=== PATIENT | female | born 1950 | race African-American/Black ===

== ENCOUNTER 2019-12-19 10:20 | Outpatient (CLI) | payer MEDICARE, SELFPAY ==
--- NOTE | ~2019-12-19 | MM_ITS ---
EXAMINATION: MM screening jennifer BI w leslie HISTORY: Screening mammogram, family history of breast cancer in her mother. TECHNIQUE: Craniocaudal and mediolateral oblique 3-D tomosynthesis images were obtained and synthetic 2-D images were generated. CAD analysis was submitted and interpreted. COMPARISON: 12/12/2018, 12/10/2017, 11/27/2016, 11/16/2014 BREAST PARENCHYMAL COMPOSITION: The breasts are almost entirely fatty. FINDINGS: Scattered benign-appearing calcifications are present. There is no evidence of suspicious m ass, calcification, or architectural distortion to suggest malignancy in either breast. There has bee n no suspicious interval change. IMPRESSION: 1. No mammographic evidence of malignancy. 2. Recommend routine screening mammography in one year. BI-RADS Category 2: Benign finding(s). Reviewed, dictated and finalized at location A.
== END 2019-12-19 10:21 | disposition home or self-care (01) ==
PROVIDERS: PCP Family Medicine; Visit Provider Family Medicine
DX: Z12.31 Encounter for screening mammogram for malignant neoplasm of breast (principal)
CPT/HCPCS: 77063; 77067

== ENCOUNTER → 2019-12-24 13:37 | Outpatient (CLI) | payer MEDICARE, SELFPAY ==
--- NOTE | ~2019-12-24 | US_ITS ---
EXAMINATION: US soft tissue LE RT DATE: 12/24/2019 14:00 INDICATION: Painless localized swelling, unspecified lump or mass at the posterolateral right thigh TECHNIQUE: Multiple grayscale and Doppler ultrasound images of the region of concern at the posterola teral right thigh were obtained. COMPARISON: None FINDINGS/IMPRESSION: Normal appearance to the subcutaneous fat and underlying musculature at the region of concern. No abn ormal masses or fluid collections identified. Reviewed, dictated and finalized at location A.
== END ==
PROVIDERS: PCP Family Medicine; Visit Provider Family Medicine
DX: R22.9 Localized swelling, mass and lump, unspecified (principal); M79.89 Other specified soft tissue disorders
CPT/HCPCS: 76882

== ENCOUNTER 2020-05-03 07:42 | Outpatient (CLI) | payer MEDICARE, SELFPAY ==
--- NOTE | ~2020-05-03 | DEXA_ITS ---
Bone Density Report Name: Dinora Washington Age: 70 Sex: Female Ethnicity: Black Date of : 1950 Indication: hyperparathyroidism; height loss; hysterectomy; Referring Provider: NateBishop Study: Bone densitometry was performed. Exam Date: May 03, 2020 Accession number: [id number] Bone Density: Region BMD T-score Z-score Classification AP Spine (L1, L2) 0.953 -0.2 1.2 Normal Femoral Neck (Left) 0.653 -1.8 -0.6 Osteopenia Total Hip (Left) 0.987 0.4 0.9 Normal Total Hip Bilateral Avg 1.004 0.6 1.0 Normal Femoral Neck (Right) 0.723 -1.1 -0.1 Osteopenia Total Hip (Right) 1.021 0.7 1.1 Normal World Health Organization criteria for BMD impression classify patients as: Normal (T-score at or above -1.0), Osteopenia (T-score between -1.0 and -2.5), or Osteoporosis (T-score at or below -2.5). 10-year Fracture Risk(1): Major Osteoporotic Fracture 4.5% Hip Fracture 0.8% Reported Risk Factors: [place] (Black), Neck BMD=0.653, BMI=39.1 (1) FRAX(R) Version 3.08. Fracture probability calculated for an untreated patient. Fracture probability may be lower if the patient has received treatment. Previous Exams: Region Exam Age BMD T-score BMD Change BMD Change Date g/cm2 vs Baseline vs Previous AP Spine(L1, L2) 05/03/2020 70 0.953 -0.2 -0.076(-7.4%)# 0.016(1.7%) 03/03/2018 68 0.938 -0.4 -0.092(-8.9%)# -0.046(-4.7%)* 09/16/2015 65 0.984 0.0 -0.045(-4.4%)# -0.003(-0.3%)# 04/28/2012 62 0.987 0.1 -0.042(-4.1%)# -0.042(-4.1%)# 04/06/2006 56 1.029 0.5 Total Hip(Left) 05/03/2020 70 0.987 0.4 -0.124(-11.2%) 0.016(1.6%) 03/03/2018 68 0.971 0.2 -0.140(-12.6%) -0.014(-1.4%) 09/16/2015 65 0.985 0.4 -0.126(-11.3%) -0.071(-6.7%)# 04/28/2012 62 1.056 0.9 -0.055(-5.0%)# -0.055(-5.0%)# 04/06/2006 56 1.111 1.4 Total Hip(Right) 05/03/2020 70 1.021 0.7 -0.160(-13.5%) 0.027(2.7%)* 03/03/2018 68 0.994 0.4 -0.187(-15.8%) -0.084(-7.8%)* 09/16/2015 65 1.078 1.1 -0.103(-8.7%)# -0.046(-4.1%)# 04/28/2012 62 1.125 1.5 -0.056(-4.8%)# -0.056(-4.8%)# 04/06/2006 56 1.181 2.0 *Denotes significance at 95% confidence level, LSC for AP Spine = 0.022 g/cm2, LSC for Total Hip = 0.027 g/cm2 Clinical Information Provided by Patient: Has used the following medications: Vitamin D Has the following medical conditions: Hyperparathyroidism, Hysterectomy Patient maximum height was 63 Menopause Age: 46 No regular weight bearing exercise
== END 2020-05-03 07:43 | disposition home or self-care (01) ==
LOC: ANHIMG 07:44
PROVIDERS: PCP Family Medicine; Visit Provider Internal Medicine Endocrinology, Diabetes & Metabolism
DX: E21.3 Hyperparathyroidism, unspecified (principal); M85.852 Other specified disorders of bone density and structure, left thigh; M85.851 Other specified disorders of bone density and structure, right thigh
CPT/HCPCS: 77080

== ENCOUNTER 2020-12-15 10:11 | Outpatient (CLI) | payer MEDICARE, SELFPAY | END 2020-12-15 10:12 | disposition home or self-care (01) | LOC: ANHCOVIDVC 10:11 | PROVIDERS: PCP Family Medicine; Visit Provider Family Medicine | DX: Z23 Encounter for immunization (principal) | CPT/HCPCS: 0001A; 91300 ==

== ENCOUNTER 2021-01-05 10:11 | Outpatient (CLI) | payer MEDICARE, SELFPAY | END 2021-01-05 10:12 | disposition home or self-care (01) | LOC: ANHCOVIDVC 10:11 | PROVIDERS: PCP Family Medicine; Visit Provider Family Medicine | DX: Z23 Encounter for immunization (principal) | CPT/HCPCS: 0002A; 91300 ==

== ENCOUNTER 2021-03-10 07:48 | Outpatient (CLI) | payer MEDICARE, SELFPAY ==
--- NOTE | ~2021-03-10 | MM_ITS ---
EXAMINATION: MM screening jennifer BI w leslie HISTORY: Screening TECHNIQUE: Craniocaudal and mediolateral oblique 3-D tomosynthesis images were obtained and synthetic 2-D images were generated. CAD analysis was submitted and interpreted. COMPARISON: Comparison to multiple prior studies sequentially, with oldest reviewed study dated 04/2015. BREAST PARENCHYMAL COMPOSITION: The breasts are almost entirely fatty. FINDINGS: There is no evidence of suspicious mass, calcification, or architectural distortion to sugg est malignancy in either breast. There has been no suspicious interval change. IMPRESSION: 1. No mammographic evidence of malignancy. 2. Recommend routine screening mammography in one year. BI-RADS Category 1: Negative Reviewed, dictated and finalized at location A.
== END 2021-03-10 07:49 | disposition home or self-care (01) ==
LOC: ANHIMG 07:54
PROVIDERS: PCP Family Medicine; Visit Provider Family Medicine
DX: Z12.31 Encounter for screening mammogram for malignant neoplasm of breast (principal)
CPT/HCPCS: 77063; 77067

== ENCOUNTER 2021-09-16 22:21 | Emergency (ER) | payer MEDICARE, SELFPAY ==
--- NOTE | ~2021-09-16 | CT_ITS ---
EXAMINATION: CT abdomen pelvis w con DATE: 09/17/2021 02:08 INDICATION: Abdominal pain. TECHNIQUE: Computed tomography (CT) of the abdomen and pelvis was performed with 100 mL Omnipaque 350 intravenous contrast. Automated exposure control and iterative reconstruction technique were employe d. The dose-length product was 1234.24 mGy-cm. COMPARISON: CT abdomen and pelvis 07/27/2013 FINDINGS: The visualized portions of the lung bases demonstrate mild atelectasis. There is bronchiect asis in the lower lobes. The heart size is normal. No pericardial effusion. There is a large sliding hiatal hernia containing the majority of the stomach and some of the pancreas. The liver, gallbladder , spleen, and adrenal glands are normal. There are cysts in left kidney measuring up to 2.9 cm. Pelvi c floor relaxation is noted. There is a diverticulum of the third portion of the duodenum. There is d iverticulosis of the colon without evidence of diverticulitis. The appendix is not visualized. There are no pathologically enlarged lymph nodes. There is no free intraperitoneal fluid. There is moderate thoracic and lumbar spondylosis. IMPRESSION: 1. Large sliding hiatal hernia. 2. Pelvic floor relaxation. Reviewed, dictated and finalized at location A. NG PRESS MAINTAINER
[2021-09-16 22:23] VITALS: BP 180/94; PULSE 100; RESP 20; TEMP 35.9; O2SAT 100
--- NOTE | 2021-09-17 00:13 | ED.ABDPAIN ---
HPI - Abdominal Pain General Chief Complaint: Abdominal Pain <DO Allegra Rodriguez Last Filed: 09/17/21 01:28> Stated Complaint: abdominal pain <DO Allegra Rodriguez Last Filed: 09/17/21 01:28> Time Seen by Provider: 09/16/21 23:43 <DO Allegra Rodriguez Last Filed: 09/17/21 01:28> Source: RN notes reviewed <DO Allegra Rodriguez Last Filed: 09/17/21 01:28> History of Present Illness HPI narrative: Patient presents to emergency department from home for abdominal pain. Patient states pain began approximately 8:00 this evening. The pain is located across the upper abdomen described as cramping in nature. Patient states that for like she had had gas and did have some nausea but never had any vomiting she states she did take Gas-X which seems of help with her pain she denies any fevers or chills chest pain shortness of breath vomiting diarrhea or any other symptoms <DO Allegra Rodriguez Last Filed: 09/17/21 01:28> Related Data Home Medications: Home Medications Medication Instructions Recorded Confirmed ibuprofen 200 mg tablet 200 mg PO Q6H PRN 05/09/20 04/06/21 tnjsfycqgqwe-ndytbqeh-xrrapvg-folic 1 tablet PO DAILY 05/09/20 04/06/21 acid 400 mcg-vit K1 20 mcg tablet <DO Allegra Rodriguez Last Filed: 09/17/21 01:28> Allergies/Adverse Reactions: Allergies Allergy/AdvReac Type Severity Reaction Status Date / Time quinapril Allergy Mild angioedema Verified 09/16/21 22:27 acetaminophen Allergy Unknown Nausea and Verified 09/16/21 22:27 Vomiting codeine Allergy Unknown Nausea and Verified 09/16/21 22:27 Vomiting erythromycin base Allergy Unknown Unknown Verified 09/16/21 22:27 isosorbide Allergy Unknown Unknown Verified 09/16/21 22:27 prochlorperazine Allergy Unknown Unknown Verified 09/16/21 22:27 red dye Allergy Unknown Unknown Verified 09/16/21 22:27 tramadol Allergy Unknown Unknown Verified 09/16/21 22:27 amoxicillin AdvReac Mild GI UPSET Verified 09/16/21 22:27 <DO Allegra Rodriguez Last Filed: 09/17/21 01:28> Review of Systems Review of Systems: Gen.: Denies fevers or chills ENT: Denies congestion Respiratory: Denies shortness of breath or cough CV: Denies chest pain or palpitations GI: See HPI denies burning, urgency, frequency or hematuria Musculoskeletal: Denies back pain or muscle pain Neuro: Denies numbness, tingling, weakness or focal weakness Skin: Denies rash Except as documented, all other systems reviewed and negative <Shaggy Arriaza DO - Last Filed: 09/17/21 01:28> [facility] Past Medical History Medical History: Medical History (Updated 09/17/21 @ 03:16 by Fely Fontenot MD) Cardiomegaly Hiatal hernia (~06/02/07) History of chicken pox History of measles Hypercalcemia Lacunar stroke Left atrial enlargement (~06/22/07) Mitral regurgitation Right lumbar radiculopathy Tricuspid regurgitation (~06/22/07) <Shaggy Arriaza DO - Last Filed: 09/17/21 01:28> Surgical History Surgical History: Surgical History H/O hysterectomy with unilateral oophorectomy History of appendectomy (~2006) History of arthroscopy of shoulder (~2016) History of tubal ligation <Shaggy Arriaza DO - Last Filed: 09/17/21 01:28> Family History Family History: Family History Grandparent Diabetes mellitus Mother Diabetes mellitus Renal disease Breast cancer Father Renal disease Sibling Colon polyp Other Renal disease Other Hypertension <Shaggy Arriaza DO - Last Filed: 09/17/21 01:28> Social History Social History: Social History (Updated 09/17/21 @ 00:14 by Shaggy Arriaza DO) Smoking status: Never smoker Alcohol intake: never <Shaggy Arriaza DO - Last Filed: 09/17/21 01:28> Exam Narrative: APPEARANCE: No acute distress, nontoxic, r
[2021-09-17] MEDS: DICYCLOMINE HCL INJ 20 MG/2 ML VIAL IM (00:23)
[2021-09-17 00:30] LABS: Basophils Percent Auto 0.2 % (0.2-1.2); Eosinophils Percent Auto 0.1 % (0-4.4); Hematocrit 43.4 % (37.0-47.0); Hemoglobin 14.7 g/dL (12.0-15.0); Immature Granulocyte Absolute 0.06 K/mm3 (0.00-0.031); Immature Granulocyte Percent A 0.4 % (0-0.5); Lymphocytes Absolute Auto 0.85 K/mm3 (0.9-3.2); Lymphocytes Percent Auto 5.5 % (18.3-44.2); Mean Corpuscular HGB Conc 33.9 g/dl (32-36); Mean Corpuscular Hemoglobin 30.1 pg (26-34); Mean Corpuscular Volume 88.9 fl (80-100); Mean Platelet Volume 11.6 fl (7.4-10.4); Monocytes Absolute Auto 0.8 K/mm3 (0.1-0.6); Monocytes Percent Auto 5.2 % (2.6-8.5); Neutrophils Absolute Auto 13.7 K/mm3 (1.3-6.7); Neutrophils Percent Auto 88.6 % (45.5-73.1); Platelet Count Result 206 k/mm3 (150-375); Red Blood Count 4.88 M/mm3 (4.2-5.4); Red Cell Distribution Width 14.6 % (11.5-14.5); White Blood Count 15.5 K/mm3 (4.5-10.0)
[2021-09-17 01:06] LABS: Add Urine Microscopic? YES; Appearance Urine Cloudy (Clear); Bacteria Urine Trace /hpf; Bilirubin Urine Negative (Negative); Blood Urine Negative (Negative); Color Urine Yellow (Yellow); Glucose Urine UA Negative (Negative); Ketones Urine Negative (Negative); Leukocyte Esterase Ur Negative LEU/UL (Negative); Mucus Urine Few /lpf; Nitrate Urine Negative (Negative); Protein Urine Negative (Negative); Specific Grav Ur 1.023 (1.001-1.035); Squamous Epithelial Cell Urine Many /hpf (Few); WBC Urine 0-3 /hpf
[2021-09-17 01:48] LABS: Alanine Aminotransferase 159 U/L (4-35); Albumin Level 4.2 g/dL (3.5-5.1); Alkaline Phosphatase 89 U/L (38-126); Anion Gap 9 mmol/L (8-16); Aspartate Amino Transferase 356 U/L (14-36); Bilirubin,Total 0.8 mg/dL (0.2-1.3); Blood Urea Nitrogen 20 mg/dL (7-17); Calcium 10.6 mg/dL (8.4-10.2); Carbon Dioxide 28 mmol/L (22-30); Chloride 103 mmol/L (98-107); Estimated CRCL calculation 48 ml/min; Estimated Glomerular Filt Rate > 60; Glucose 179 mg/dL (65-110); Lipase 86 U/L (23-300); Potassium 3.6 mmol/L (3.4-5.0); Sodium 140 mmol/L (137-145)
[2021-09-17 02:15] VITALS: BP 172/80; PULSE 103; RESP 20; O2SAT 96
[2021-09-17 03:14] VITALS: BP 168/92; PULSE 100; RESP 20; O2SAT 100
== END 2021-09-17 03:31 | disposition home or self-care (01) ==
PROVIDERS: Emergency Provider Emergency Medicine; PCP Family Medicine
DX: R10.9 Unspecified abdominal pain (principal); R74.01 Elevation of levels of liver transaminase levels
CPT/HCPCS: 36415; 74177; 80053; 81001; 83690; 85025; 96372; 99284; J0500; Q9967

== ENCOUNTER 2022-03-26 14:08 | Outpatient (CLI) | payer MEDICARE, SELFPAY ==
--- NOTE | ~2022-03-26 | MM_ITS ---
EXAMINATION: MM screening [facility] BI w leslie HISTORY: Screening TECHNIQUE: Craniocaudal and mediolateral oblique 3-D tomosynthesis images were obtained and synthetic 2-D images were generated. CAD analysis was submitted and interpreted. COMPARISON: Comparison to multiple prior studies sequentially, with oldest reviewed study dated 11/21. BREAST PARENCHYMAL COMPOSITION: There are scattered areas of fibroglandular density. FINDINGS: There is a developing cluster of calcifications in the upper outer quadrant. There is a new mass in the upper outer quadrant near the Carias of the left breast. The right breast is stable wit hout evidence for malignancy. IMPRESSION: 1. New left breast mass, periareolar location and developing clustered calcifications upper outer amee drant. 2. Additional mammographic views and possible breast ultrasound are recommended. BI-RADS Category 0: Incomplete: Needs additional imaging evaluation. Reviewed, dictated and finalized at location A. IMPRESSION: 1. New left breast mass, periareolar location and developing clustered calcific ations upper outer quadrant. 2. Additional mammographic views and possible breast ultrasound are recommended . BI-RADS Category 0: Incomplete: Needs additional imaging evaluation.
== END 2022-03-26 14:09 | disposition home or self-care (01) ==
LOC: ANHIMG 14:11
PROVIDERS: PCP Family Medicine; Visit Provider Family Medicine
DX: Z12.31 Encounter for screening mammogram for malignant neoplasm of breast (principal); R92.8 Other abnormal and inconclusive findings on diagnostic imaging of breast
CPT/HCPCS: 77063; 77067

== ENCOUNTER 2022-03-31 12:30 | Outpatient (CLI) | payer MEDICARE, SELFPAY ==
--- NOTE | ~2022-03-31 | MMUS_ITS ---
EXAMINATION: MM diagnostic jennifer LT w leslie, US breast LT limited HISTORY: Subareolar left breast mass and developing clustered calcifications in the upper outer quadr ant reported on 03/26/2022 screening mammogram TECHNIQUE: Additional 3-D tomosynthesis images of left breast were performed and synthetic 2-D images were generated. Magnification views of the left breast. CAD analysis was submitted and interpreted. High resolution upper outer and lower-outer left breast ultrasound was performed. COMPARISON: 03/26/2022 bilateral screening mammogram FINDINGS: MAMMOGRAPHIC FINDINGS: The subareolar density is not evident on these supplemental views and was likely due to summation sha talia of overlapping fibroglandular content. There is an approximately 6.5 mm linear array of relatively punctate microcalcifications in the outer mid left breast. ULTRASOUND: Ultrasound imaging of the upper outer and lower-outer quadrants of left breast reveals no suspicious mass or shadowing or other significant sonographic finding. IMPRESSION: 1. Probable benign finding 2. Six-month diagnostic left mammogram follow-up is recommended BI-RADS category 3, probably benign findings. Reviewed, dictated and finalized at location A. IMPRESSION: 1. Probable benign finding 2. Six-month diagnostic left mammogram follow-up is recommended BI-RADS category 3, probably benign findings.
== END 2022-03-31 12:31 | disposition home or self-care (01) ==
PROVIDERS: PCP Family Medicine; Visit Provider Family Medicine
DX: R92.8 Other abnormal and inconclusive findings on diagnostic imaging of breast (principal)
CPT/HCPCS: 76642; 77061; 77065; G0279

== ENCOUNTER → 2022-10-16 07:44 | Outpatient (CLI) | payer MEDICARE, SELFPAY ==
--- NOTE | ~2022-10-16 | XR_ITS ---
XR hip RT 2V w AP pelvis 10/16/2022 08:27 Indication: Dorsalis Procedure: 2 views right hip Comparison: 11/28/2006 Findings: There is mild symmetric bilateral osteoarthritis of the hips. Pelvic rings are intact. Sacr al foramen are symmetric. Normal mineralization. Lower lumbar spondylosis partially visualized. No ac [place] fracture or traumatic malalignment. Impression: 1: Mild bilateral symmetric osteoarthritis of the hips. Reviewed, dictated and finalized at location A. S DRILLER Impression: 1: Mild bilateral symmetric osteoarthritis of the hips.
--- NOTE | ~2022-10-16 | XR_ITS ---
XR lumbar spine 2-3V 10/16/2022 08:27 Indication: Low back pain. Procedure: 3 views lumbar spine Comparison: MRI dated 02/20/2019 Findings: There is multilevel facet hypertrophy involving all lumbar levels. There is degenerative gr abe 1 spondylolisthesis at L3-4, L4-5 and L5-S1. No acute fracture or traumatic malalignment. Vertebr al body heights are maintained. Sacral foramen are symmetric. There is mild osteoarthritis of the hip s. There is mild disc narrowing at L3-4, L4-5 and L5-S1. Impression: 1: Stable moderate lumbar spondylosis. Reviewed, dictated and finalized at location A. UTIVE OFFICE MANAGER Impression: 1: Stable moderate lumbar spondylosis.
== END ==
PROVIDERS: PCP Family Medicine; Visit Provider Physician Assistant
DX: M54.9 Dorsalgia, unspecified (principal); M16.0 Bilateral primary osteoarthritis of hip; M43.06 Spondylolysis, lumbar region
CPT/HCPCS: 72100; 73502

== ENCOUNTER 2022-10-20 11:52 | Outpatient (CLI) | payer MEDICARE, SELFPAY ==
--- NOTE | ~2022-10-20 | MM_ITS ---
EXAMINATION: MM diagnostic jennifer LT w leslie HISTORY: Probable benign calcifications TECHNIQUE: ML, MLO and CC 3-D tomosynthesis images of left breast were performed and synthetic 2-D im ages were generated. ML, MLO and CC magnification views of left breast CAD analysis was submitted and interpreted. COMPARISON: 03/31/2022 diagnostic left mammogram and limited left breast ultrasound 03/26/2022 bilateral screening mammogram BREAST PARENCHYMAL COMPOSITION: The breasts are almost entirely fatty. FINDINGS: There is a small approximately 6 mm long linear array of granular appearing microcalcificat ions in the outer mid left breast. These are indeterminate. Small ductal cancer or ductal carcinoma i n situ is not excluded. Stereotactic biopsy is recommended. IMPRESSION: 1. Indeterminate linear array of microcalcifications in the outer mid left breast 2. Stereotactic left breast biopsy is recommended BI-RADS category 4, suspicious findings. Dr. Akbar telephoned the report and stereotactic biopsy recommendation of the left breast on 10/20/2022 [address] Shalom Chapman. Reviewed, dictated and finalized at location A. OGIST TECHNICIAN IMPRESSION: 1. Indeterminate linear array of microcalcifications in the outer mid left [address] 2. Stereotactic left breast biopsy is recommended BI-RADS category 4, suspicious findings. Dr. Akbar telephoned the report and stereotactic biopsy recommendation of the le ft breast on 10/20/2022 [address] Shalom Chpaman.
== END 2022-10-20 11:53 | disposition home or self-care (01) ==
LOC: ANHIMG 11:53
PROVIDERS: PCP Family Medicine; Visit Provider Physician Assistant
DX: R92.8 Other abnormal and inconclusive findings on diagnostic imaging of breast (principal)
CPT/HCPCS: 77061; 77065; G0279

== ENCOUNTER 2022-11-02 11:01 | Outpatient (CLI) | payer MEDICARE, SELFPAY ==
--- NOTE | ~2022-11-02 | MM_ITS ---
EXAMINATION: MM stereotactic bx LT, MM post biopsy diagnostic LT, MM stereotactic specimen LT, Specim en Radiograph, Tissue Marker Clip Placement, Unilateral Mammogram DATE: 11/02/2022 12:50 (accession [id number]), 11/02/2022 12:54 (accession [id number]), 11/02 12:45 (accession [id number]) INDICATION: Abnormal mammogram: Indeterminate linear array of microcalcifications in the outer mid to upper left breast on 10/20/2022 diagnostic left mammogram. TECHNIQUE AND FINDINGS: The risks and potential benefits of the procedure were discussed with the patient and written informe d consent was obtained. Timeout procedure was performed. The patient was placed in the prone position on the dedicated stereotactic table with the left breast in craniocaudal compression, and the area o f interest was localized and targeted utilizing digital imaging with stereotaxis. After sterile preparation of the skin, 2 % lidocaine was utilized for local anesthesia at the skin pu ncture site and to % lidocaine with epinephrine was utilized for deeper local anesthesia/is about the biopsy site. A 9G [employer] vacuum assisted biopsy needle was advanced to the level of the calcificatio n of interest from a cephalad approach utilizing stereotactic guidance and a total of 12 tissue core biopsies were obtained. A specimen radiograph demonstrates that the calcifications of interest are included within the tissue cores. A tissue marker clip was then placed at the biopsy site. A digital mammographic exposure co nfirmed the successful deployment of the biopsy marker. The needle was removed and hemostasis was ac hieved. A sterile bandage was applied. The patient tolerated the procedure well and there is no christopher dence of significant immediate complication. The patient was given verbal as well as written postpro cedural instructions prior to discharge from the department. Tissue cores were submitted to surgical pathology for histologic analysis. A 2-view left unilateral digital mammogram was obtained post procedure, demonstrating the tissue jonn er clip in expected position. IMPRESSION: 1. Successful stereotactic biopsy of microcalcifications in the outer mid to upper left breast, fol lowed by tissue marker clip placement. Please refer to pathology report for histologic analysis. Reviewed, dictated and finalized at Location A. Reviewed, dictated and finalized at location A. UME DIRECTOR IMPRESSION: 1. Successful stereotactic biopsy of microcalcifications in the outer mid to upper left breast, followed by tissue marker clip placement. Please refer to p athology report for histologic analysis. IMPRESSION: 1. Successful stereotactic biopsy of microcalcifications in the outer mid to upper left breast, followed by tissue marker clip placement. Please refer to p athology report for histologic analysis.
== END 2022-11-02 11:02 | disposition home or self-care (01) ==
PROVIDERS: PCP Family Medicine; Visit Provider Family Medicine
DX: R92.8 Other abnormal and inconclusive findings on diagnostic imaging of breast (principal)
CPT/HCPCS: 19081; 77065; 88305; 88342; A4648

== ENCOUNTER 2023-04-20 11:37 | Outpatient (CLI) | payer MEDICARE, SELFPAY ==
--- NOTE | ~2023-04-20 | MM_ITS ---
EXAMINATION: MM diagnostic jennifer BI w leslie HISTORY: Recent reportedly benign left breast biopsy of microcalcifications. HEENT screening of both breasts. TECHNIQUE: ML, MLO and CC 3-D tomosynthesis images of both breasts were performed and synthetic 2-D i mages were generated. CAD analysis was submitted and interpreted. COMPARISON: 10/20/19992012 diagnostic left mammogram 03/31/2022 diagnostic left mammogram and limited left breast ultrasound 03/26/2022, 03/10/2021 bilateral screening mammogram examinations BREAST PARENCHYMAL COMPOSITION: There are scattered areas of fibroglandular density. FINDINGS: There is a biopsy marker on the left; history of prior benign left breast biopsy. No suspic ious mass or architectural distortion, malignant calcification, skin thickening or retraction or sign ificant new or developing density is detected. IMPRESSION: 1. No mammographic evidence of malignancy 2. Routine annual mammographic screening is recommended. BI-RADS Category 1: Negative Reviewed, dictated and finalized at location A.
== END 2023-04-20 11:38 | disposition home or self-care (01) ==
LOC: ANHIMG 11:38
PROVIDERS: PCP Family Medicine; Visit Provider Family Medicine
DX: N60.99 Unspecified benign mammary dysplasia of unspecified breast (principal); R92.0 Mammographic microcalcification found on diagnostic imaging of breast
CPT/HCPCS: 77062; 77066; G0279

== ENCOUNTER 2023-06-02 00:25 | Day surgery (SDC) | payer MEDICARE, SELFPAY ==
[2023-05-19 13:07] VITALS: BMI 37.7
[2023-06-02 08:55] VITALS: BP 147/83; PULSE 95; RESP 18; TEMP 36.2; O2SAT 97
--- NOTE | 2023-06-02 09:06 | WPDANESEPPF ---
Anes - Initial Pre Proc Eval Procedure: Operation Date: 06/02/23 09:45 Proposed Procedures p Colonoscopy - Candelario Mendoza MD Date/Time: 06/02/23 09:06 Surgeon: Candelario Mendoza MD Pre Op Diagnosis: family hx colon polyps Patient Data Age: 73 Gender: F Height: 1.57 m Weight: 88.9 kg Last Vital Signs Temp 36.2 C L 06/02/23 08:55 Pulse 95 06/02/23 08:55 Resp 18 06/02/23 08:55 BP 147/83 H 06/02/23 08:55 Pulse Ox 97 06/02/23 08:55 O2 Del Method Room Air 06/02/23 08:55 Allergies Allergy/AdvReac Type Severity Reaction Status Date / Time quinapril Allergy Mild angioedema Verified 06/02/23 08:51 acetaminophen Allergy Unknown Nausea and Verified 06/02/23 08:51 Vomiting codeine Allergy Unknown Nausea and Verified 06/02/23 08:51 Vomiting erythromycin base Allergy Unknown Unknown Verified 06/02/23 08:51 isosorbide Allergy Unknown Unknown Verified 06/02/23 08:51 prochlorperazine Allergy Unknown Unknown Verified 06/02/23 08:51 red dye Allergy Unknown Unknown Verified 06/02/23 08:51 tramadol Allergy Unknown Unknown Verified 06/02/23 08:51 amoxicillin AdvReac Mild GI UPSET Verified 06/02/23 08:51 Home Medications Medication Instructions Recorded Confirmed Type yxryvocafwbl-sqimmglj-fkzvwih-folic 1 tablet PO DAILY 05/09/20 06/02/23 History acid 400 mcg-vit K1 20 mcg tablet (One-A-Day Women's 50 Plus) mecobalamin (vitamin B12) 1,000 1,000 mcg PO DAILY 07/30/22 06/02/23 History mcg chewable tablet hydrochlorothiazide 12.5 mg capsule 12.5 mg PO DAILY #90 caps 09/10/22 06/02/23 Rx losartan 50 mg tablet See Rx Instructions .Route 10/21/22 06/02/23 Rx .COMPLEX #90 tabs fluticasone propionate 50 2 spray intranasal DAILY PRN Sinus 05/19/23 06/02/23 History mcg/actuation nasal Symptoms spray,suspension (Flonase Allergy Relief) lidocaine 5 % topical patch 1 patch topical DAILY PRN Pain 05/19/23 06/02/23 History meloxicam 15 mg tablet 15 mg PO DAILY #90 tabs 05/27/23 06/02/23 Rx pregabalin 50 mg capsule (Lyrica) 50 mg PO BID #180 caps 05/27/23 06/02/23 Rx amlodipine 10 mg tablet See Rx Instructions .Route 05/30/23 06/02/23 Rx .COMPLEX #90 tabs metformin 500 mg tablet,extended 500 mg PO QPM #90 tabs 05/30/23 06/02/23 Rx release 24 hr potassium chloride 20 mEq 20 meq PO DAILY #90 tabs 05/30/23 06/02/23 Rx tablet,extended release(part/cryst) (Jerry M) Patient hx anesthesia problems: none Family hx anesthesia problems: none Results Review: All pre-operative results and documents have been reviewed as part of the pre-operative evaluation. [facility] Past Medical History Medical History Cardiomegaly Hepatitis C antibody test negative (11/12/17) Hiatal hernia (~06/02/07) History of chicken pox History of measles Hypercalcemia Lacunar stroke Left atrial enlargement (~06/22/07) Mitral regurgitation Right lumbar radiculopathy Tricuspid regurgitation (~06/22/07) Surgical History Surgical History H/O hysterectomy with unilateral oophorectomy History of appendectomy (~2006) History of arthroscopy of shoulder (~2016) History of tubal ligation Family History Family History Grandparent Diabetes mellitus Mother Diabetes mellitus Renal disease Breast cancer Father Renal disease Sibling Colon polyp Other Renal disease Other Hypertension Social History Social History Smoking status: Never smoker Alcohol intake: never Substance use: never Substance use type: does not use Lack of Transportation: No Lack of Food: Never True Current Housing: I Have Housing Concerned About Future Housing: No Difficulty Paying Gas/Electric Bills: No Difficulty Paying for Meds: No Currently Unemploye
[2023-06-02 09:11] LABS: Glucose Point of Care 112 mg/dl (65-105)
[2023-06-02] MEDS: LACTATED RINGERS 1,000 ML 150 ML IV CONT (09:11)
--- NOTE | 2023-06-02 09:27 | PM.HPGS ---
History of Present Illness History of Present Illness Consent: Risks, benefits, and alternatives have been discussed and questions answered. Patient agrees to proceed with procedure. Chief complaint: family hx colon polyps Narrative: Dinora Washington is a 73 year old female Presents for screening colonoscopy. Patient's current weight appetite and bowel movements are normal. Patient denies abdominal pain. She has had bleeding. Family history is significant both brother and sister have had colon polyps. Patient presents today for neoplasia screening colonoscopy. Review of Systems Review of Systems: Review of systems noncontributory. [facility] Past Medical History Medical History Cardiomegaly Hepatitis C antibody test negative (11/12/17) Hiatal hernia (~06/02/07) History of chicken pox History of measles Hypercalcemia Lacunar stroke Left atrial enlargement (~06/22/07) Mitral regurgitation Right lumbar radiculopathy Tricuspid regurgitation (~06/22/07) Surgical History Surgical History H/O hysterectomy with unilateral oophorectomy History of appendectomy (~2006) History of arthroscopy of shoulder (~2016) History of tubal ligation Family History Family History Grandparent Diabetes mellitus Mother Diabetes mellitus Renal disease Breast cancer Father Renal disease Sibling Colon polyp Other Renal disease Other Hypertension Social History Social History Smoking status: Never smoker Alcohol intake: never Substance use: never Substance use type: does not use Lack of Transportation: No Lack of Food: Never True Current Housing: I Have Housing Concerned About Future Housing: No Difficulty Paying Gas/Electric Bills: No Difficulty Paying for Meds: No Currently Unemployed: No Education: Decline to Answer Difficulty w/ Childcare or Family Care: Decline to Answer Living arrangements: with family Spiritual care concerns: No Meds Home Medications and Allergies Home Medications Medication Instructions Recorded Confirmed Type esrfytqftvph-wkxhixew-aysaafq-folic 1 tablet PO DAILY 05/09/20 06/02/23 History acid 400 mcg-vit K1 20 mcg tablet (One-A-Day Women's 50 Plus) mecobalamin (vitamin B12) 1,000 1,000 mcg PO DAILY 07/30/22 06/02/23 History mcg chewable tablet hydrochlorothiazide 12.5 mg capsule 12.5 mg PO DAILY #90 caps 09/10/22 06/02/23 Rx losartan 50 mg tablet See Rx Instructions .Route 10/21/22 06/02/23 Rx .COMPLEX #90 tabs fluticasone propionate 50 2 spray intranasal DAILY PRN Sinus 05/19/23 06/02/23 History mcg/actuation nasal Symptoms spray,suspension (Flonase Allergy Relief) lidocaine 5 % topical patch 1 patch topical DAILY PRN Pain 05/19/23 06/02/23 History meloxicam 15 mg tablet 15 mg PO DAILY #90 tabs 05/27/23 06/02/23 Rx pregabalin 50 mg capsule (Lyrica) 50 mg PO BID #180 caps 05/27/23 06/02/23 Rx amlodipine 10 mg tablet See Rx Instructions .Route 05/30/23 06/02/23 Rx .COMPLEX #90 tabs metformin 500 mg tablet,extended 500 mg PO QPM #90 tabs 05/30/23 06/02/23 Rx release 24 hr potassium chloride 20 mEq 20 meq PO DAILY #90 tabs 05/30/23 06/02/23 Rx tablet,extended release(part/cryst) (Klor-Con M) Allergies Allergy/AdvReac Type Severity Reaction Status Date / Time quinapril Allergy Mild angioedema Verified 06/02/23 08:51 acetaminophen Allergy Unknown Nausea and Verified 06/02/23 08:51 Vomiting codeine Allergy Unknown Nausea and Verified 06/02/23 08:51 Vomiting erythromycin base Allergy Unknown Unknown Verified 06/02/23 08:51 isosorbide Allergy Unknown Unknown Verified 06/02/23 08:51 prochlorperazine Allergy Unknown Unknown Verified 06/02/23 08:51 red dye Allergy Unk
[2023-06-02 10:08] VITALS: BP 151/83; PULSE 80; RESP 20; O2SAT 96
[2023-06-02 10:18] VITALS: BP 142/82; PULSE 76; RESP 20; O2SAT 96
[2023-06-02 10:28] VITALS: BP 145/91; PULSE 82; RESP 20; O2SAT 98
== END 2023-06-02 10:43 | disposition home or self-care (01) ==
PROVIDERS: PCP Family Medicine; Visit Provider Internal Medicine Gastroenterology
PROC: 0DJD8ZZ Inspection of Lower Intestinal Tract, Via Natural or Artificial Opening Endoscopic (ICD-10-PCS; CPT 45378; principal; 2023-06-02 09:45)
DX: Z12.11 Encounter for screening for malignant neoplasm of colon (principal); K64.8 Other hemorrhoids; K57.30 Diverticulosis of large intestine without perforation or abscess without bleeding; Z83.71 Family history of colonic polyps; E83.52 Hypercalcemia; I51.7 Cardiomegaly; Z79.84 Long term (current) use of oral hypoglycemic drugs; E66.9 Obesity, unspecified; Z68.35 Body mass index [BMI] 35.0-35.9, adult; Z86.73 Personal history of transient ischemic attack (TIA), and cerebral infarction without residual deficits
CPT/HCPCS: G0105; 82948; J2704; J7120

== ENCOUNTER 2023-12-28 15:03 | Outpatient (CLI) | payer MEDICARE, SELFPAY ==
--- NOTE | ~2023-12-28 | DEXA_ITS ---
Bone Density Report Name: ANNETTE CLARK Age: 73 Sex: Female Ethnicity: Black Date of : 1950 Indication: postmenopausal; screening for osteoporosis; hysterectomy; Referring Provider: JEANETTECLARITZA Study: Bone densitometry was performed. Exam Date: December 28, 2023 Accession number: [id number] Bone Density: Region BMD T-score Z-score Classification AP Spine(L2, L3, L4) 1.161 0.7 2.6 Normal Femoral Neck (Left) 0.599 -2.3 -0.9 Osteopenia Total Hip (Left) 0.922 -0.2 0.6 Normal Femoral Neck (Right) 0.752 -0.9 0.2 Normal Total Hip (Right) 0.964 0.2 0.9 Normal Total Hip Mean 0.943 0.0 0.8 Normal World Health Organization criteria for BMD impression classify patients as: Normal (T-score at or above -1.0), Osteopenia (T-score between -1.0 and -2.5), or Osteoporosis (T-score at or below -2.5). 10-year Fracture Risk(1): Major Osteoporotic Fracture 6.1% Hip Fracture 1.6% Reported Risk Factors: [place] (Black), Neck BMD=0.599, BMI=37.4 (1) FRAX(R) Version 3.08. Fracture probability calculated for an untreated patient. Fracture probability may be lower if the patient has received treatment. Previous Exams: Region Exam Age BMD T-score BMD Change BMD Change Date g/cm2 vs Baseline vs Previous AP Spine (L2-L4) 12/28/2023 73 1.161 0.7 0.049 (4.4%)* 0.049 (4.4%)# 03/03/2018 68 1.113 0.3 0.000 (0.0%)# -0.053 (-4.6%) 09/16/2015 65 1.166 0.8 0.053 (4.8%)# 0.053 (4.8%)# 04/28/2012 62 1.113 0.3 Total Hip(Left) 12/28/2023 73 0.922 -0.2 -0.134 (-12.7% -0.065 (-6.6%) 05/03/2020 70 0.987 0.4 -0.069 (-6.5%) 0.016 (1.6%) 03/03/2018 68 0.971 0.2 -0.085 (-8.0%) -0.014 (-1.4%) 09/16/2015 65 0.985 0.4 -0.071 (-6.7%) -0.071 (-6.7%) 04/28/2012 62 1.056 0.9 Total Hip(Right) 12/28/2023 73 0.964 0.2 -0.161 (-14.3% -0.058 (-5.7%) 05/03/2020 70 1.021 0.7 -0.103 (-9.2%) 0.027 (2.7%)* 03/03/2018 68 0.994 0.4 -0.131 (-11.6% -0.084 (-7.8%) 09/16/2015 65 1.078 1.1 -0.046 (-4.1%) -0.046 (-4.1%) 04/28/2012 62 1.125 1.5 *Denotes significance at 95% confidence level, LSC for AP Spine = 0.022 g/cm2, LSC for Total Hip = 0.027 g/cm2 # Denotes dissimilar scan types or analysis methods Clinical Information Provided by Patient: Has used the following medications: MULTI VITAMIN Has the following medical conditions: Hysterectomy Patient maximum height was 62 No regular weight bearing exercise Drinks caffeinated beverages
== END 2023-12-28 15:04 | disposition home or self-care (01) ==
LOC: ANHIMG 15:05
PROVIDERS: PCP Family Medicine; Visit Provider Internal Medicine Endocrinology, Diabetes & Metabolism
DX: M85.89 Other specified disorders of bone density and structure, multiple sites (principal); E21.3 Hyperparathyroidism, unspecified; Z78.0 Asymptomatic menopausal state; Z13.820 Encounter for screening for osteoporosis
CPT/HCPCS: 77080

== ENCOUNTER 2024-03-02 10:09 | Outpatient (CLI) | payer MEDICARE, SELFPAY ==
--- NOTE | ~2024-03-02 | MM_ITS ---
EXAMINATION: MM screening jennifer BI w leslie HISTORY: Screening mammogram TECHNIQUE: Craniocaudal and mediolateral oblique 3-D tomosynthesis images were obtained and synthetic 2-D images were generated. CAD analysis was submitted and interpreted. COMPARISON: 04/20/2023 bilateral diagnostic mammogram 03/31/2022 diagnostic left mammogram and Limited left breast ultrasound 03/10/2021 bilateral screening mammogram BREAST PARENCHYMAL COMPOSITION: There are scattered areas of fibroglandular density. FINDINGS: Biopsy marker on the left; history of prior benign left breast biopsy. There is no evidence of suspicious mass, calcification, or architectural distortion to suggest malignancy in either breas t. There has been no suspicious interval change. IMPRESSION: 1. No mammographic evidence of malignancy 2. Recommend routine screening mammography in one year BI-RADS Category 2: Benign finding(s). Reviewed, dictated and finalized at location B.
== END 2024-03-02 10:10 | disposition home or self-care (01) ==
LOC: ANHIMG 10:12
PROVIDERS: PCP Family Medicine; Visit Provider Family Medicine
DX: Z12.31 Encounter for screening mammogram for malignant neoplasm of breast (principal)
CPT/HCPCS: 77063; 77067

== ENCOUNTER 2025-03-08 07:28 | Outpatient (CLI) | payer MEDICARE, SELFPAY ==
--- NOTE | ~2025-03-08 | MM_ITS ---
EXAMINATION: MM screening jennifer BI w leslie HISTORY: Screening TECHNIQUE: Craniocaudal and mediolateral oblique 3-D tomosynthesis images were obtained and synthetic 2-D images were generated. CAD analysis was submitted and interpreted. COMPARISON: Comparison to multiple prior studies sequentially, with oldest reviewed study dated 12/18. BREAST PARENCHYMAL COMPOSITION: Not Dense: The breasts are almost entirely fatty. FINDINGS: There is no evidence of suspicious mass, calcification, or architectural distortion to sugg est malignancy in either breast. There has been no suspicious interval change. IMPRESSION: 1. No mammographic evidence of malignancy. 2. Recommend routine screening mammography in one year. BI-RADS Category 1: Negative Reviewed, dictated and finalized at location A.
--- OUTSIDE RECORDS SUMMARY | 2025-03-08 07:32 | XMS_ITS | Clinical Summary ---
Author Organization [facility] [place] [facility] Address [address] [place] [address] Care Team Providers Care Marketing Sales Consultant Name Role Phone Shalom Chapman MD Primary Care Provider [phone] Allergies Active Allergy Reactions Criticality Noted Date Comments Acetaminophen Acetaminophen-Codeine Nausea only,Vomiting,Diarrhe a Reaction: Nausea, Vomiting, Diarrhea, Amoxicillin Atropine Sulfate Nausea only Low 08/26/2010 Codeine Dye Hives Medium 10/14/2008 Erythromycin Nausea only,Diarrhea Reaction: Nausea, Diarrhea, Isosorbide Prochlorperazine Red Dye Hives,Rash High Reaction: Hives, Rash, Tramadol Medications multivitamin tablet tablet take 1 tablet by oral route every day with food 0 1 Active potassium chloride ER (KLOR-CON M20) 20 mEq CR tablet take 1 tablet (20MEQ) by oral route every day with food 0 1 Active amLODIPine (NORVASC) 10 mg tablet take 1 tablet (10MG) by oral route every day 0 2 Active hydroCHLOROthia zide (HYDRODIURIL) 12.5 mg tablet take 1 tablet (12.5MG) by oral route every day 0 2 Active gabapentin (NEURONTIN) 300 mg capsule take 1 capsule by oral route 3 times every day 0 0 5 Active Additional Information Patient not taking.Reported on 11/22/2023 ibuprofen (ADVIL,MOTRIN) 100 mg tablet Take by mouth every 6 (six) hours as needed for mild pain (pain scale 1-4) Active losartan (COZAAR) 50 mg tablet Take 1 tablet (50 mg total) by mouth daily 1 Active metFORMIN XR (GLUCOPHAGE XR) 500 mg 24 hr tablet TAKE 1 TABLET BY MOUTH ONCE DAILY IN THE EVENING WITH SUPPER 1 Active azithromycin (ZITHROMAX) 250 mg tablet TAKE 2 TABLETS BY MOUTH ON DAY 1, AND THEN TAKE 1 TABLET BY MOUTH ONCE A DAY ON DAY 2 THROUGH DAY 5 3 Active diclofenac (CATAFLAM) 50 mg tablet Take 1 tablet (50 mg total) by mouth 2 (two) times a day as needed for pain 4 Active methylPREDNISol one (MEDROL DOSEPACK) 4 mg Dosepack TAKE BY MOUTH DIRECTED ON INSIDE OF PACKAGE 3 Active pregabalin (LYRICA) 50 mg capsule Take 1 capsule (50 mg total) by mouth 2 (two) times a day 4 Active Active Problems Problem Noted Date Diagnosed Date Abnormal ECG 06/26/2019 Vitamin D deficiency 02/21/2018 Assessment & Plan (11/22/2023 11:10 AM WEIGH BOX TENDER): Chronic, stable Update 25 OH vit D Assessment & Plan (11/23/2022 11:12 AM WEIGH BOX TENDER): Continue monitoring Start vit D if indicated Assessment & Plan (12/01/2021 2:18 PM WEIGH BOX TENDER): Check 25 OH vit D Start replacement if indicated Assessment & Plan (12/02/2020 5:02 PM WEIGH BOX TENDER): Check 25 OH vit D Adjust dose of Ergocalciferol accordingly Assessment & Plan (04/15/2020 12:31 PM CDT): Check 25 OH vit D Restart Ergocalciferol accordingly Assessment & Plan (02/21/2018 4:16 PM CDT): Check 25 OH vit D Adjust dose of Ergocalciferol accordingly 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 Hypercalcemia 02/23/2014 Overview (01/14/2017): HYPERCALCEMIA Primary hyperparathyroidism 02/23/2014 Overview (01/14/2017): PRIMARY HYPERPARATHYROID Assessment & Plan (11/22/2023 11:10 AM WEIGH BOX TENDER): Chronic, stable Continue monitoring serum and urine CA Bone density requested Assessment & Plan (12/01/2021 2:18 PM WEIGH BOX TENDER): Check PTH, serum Ca and 24 h urine calcium Assessment & Plan (02/21/2018 4:08 PM CDT): Check serum Ca, PTH DEXA requested. Hyperparathyroidism 01/25/2011 Assessment & Plan (11/23/2022 11:11 AM WEIGH BOX TENDER): Check serum Ca, PTH Continue monitoring unless Ca is rising Repeat dexa next year It has been very stable thru the years. Assessment & Plan (12/02/2020 5:07 PM WEIGH BOX TENDER): Continue monitoring serum Ca There is no significant hypercalciuria Bone density shows osteopenia of the left femoral neck in 2020, but between 2011 and 2019 has been with minimal changes Will continue monitoring Assessment & Plan (04/15/2020 12:31 PM CDT): Check serum, urine calcium DEXA If Ca stable, will continue to monitor Surgical History Surgery Date Site/Laterality Comments APPENDECTOMY Appendectomy HYSTERECTOMY Hysterectomy BIOPSY Breast Medical History Medical History Date Comments Anxiety disorder Anxiety Hypertension Hypertension Hx Other Medical PT IS CLAUSTROP HOBIC; Comments: MADDOX 04/16/2014 - Hx Other Medical post menopausal ; Comments: CAT 05/07/2014 - Family History Medical History Relation Name Comments Diabetes type II Other 1 Family hist ory of Diabetes -Type 2; Other Other 2 No family histo ry of Thyroid disorder; Relation Name Status Comments Other 1 Other 2 Social History Tobacco Use Types Packs/Day Years Used Date Smoking Tobacco: Never Alcohol Use Standard Drinks/Week Comments Yes 0 (1 standard drink = 0.6 oz pur e alcohol) PHQ-2 Answer Date Recorded PHQ-2 Total Score (If total score is 3 or more points, staff should administer the PHQ-9) 0 12/02/2020 Comments Unknown Sex and Gender Information Value Date Recorded Sex Assigned at Not on file Legal Sex Female 10:10 AM WEIGH BOX TENDER Gender Identity Not on file Sexual Orientation Not on file Obstetrics History Last Filed Vital Signs Vital Sign Reading Time Taken Comments Blood Pressure 130/60 11/22/2023 10:33 AM WEIGH BOX TENDER Pulse 89 11/22/2023 10:33 AM WEIGH BOX TENDER Temperature - - Respiratory Rate 15 11/22/2023 10:33 AM WEIGH BOX TENDER Oxygen Saturation 97% 06/26/2019 10:41 AM CDT Inhaled Oxygen Concentration - - Weight 91.2 kg (201 lb 1.6 oz) 11/22/2023 10:33 AM WEIGH BOX TENDER Height 157.5 cm (5' 2.01) 11/22/2023 10:[address] Body Mass Index 36.77 11/22/2023 10:33 AM WEIGH BOX TENDER Plan of Treatment Health Maintenance Due Date Last Done Comments Fall Risk Assessment 1950 Hepatitis C Screening 1950 DTaP/Tdap/Td Vaccine (1 - Tdap) 01/16/1959 Hepatitis B Screening 01/16/1966 Pneumococcal vaccine 65+ (1 of 1 - PCV) 01/16/1998 Zoster Vaccine (1 of 2) 01/16/1998 Well Visit 65+ 01/16/2013 Depression Screening 12/02/2021 12/02/2020, 02/13/2019, 02/21/2018 Covid-19 Vaccine ( season) 2024 07/28/2021, 01/05/2021, 12/15/2020 Influenza Vaccine (Season Ended) 2025 Osteoporosis Screening-Bone Density Scan 12/27/2025 12/28/2023, 03/03/2018, 09/16/2015 Procedures Procedure Name Priority Date/Time Associated Diagnosis Comments DEXA AXIAL SKELETON BONE DENSITY 1 OR MORE SITES Schedule Routine, Read Routine (OP Routine) 12/28/2023 Osteopenia of multiple sites from Last 3 Months or Most Recently Relevant to Health Maintenance Results * Dexa Axial Skeleton Bone Density 1 or 2 Site (12/28/2023) Anatomical Region Laterality Modality Body N/A Radiographic Lorie ging 12/28/2023 Bishop Sullivan MD IMG DXA PROCEDURES Final Result from Last 3 Months or Most Recently Relevant to Health Maintenance Insurance [employer] MEDICARE AETNA MEDICARE Care Teams Marketing Sales Consultant Relationship Specialty Start Date End Date Shalom Chapman MD [facility] - General 04/24/13
--- OUTSIDE RECORDS SUMMARY | 2025-03-08 07:32 | XMS_ITS | Referral Summary ---
Author Organization [facility] [place] [place] 8 [facility] Address [address] [place] [address] Care Team Providers Care Collections And Archives Director Name Role Phone Shalom Chapman MD Primary Care Provider [phone] Allergies Active Allergy Reactions Criticality Noted Date [...] 02/21/2018 Assessment & Plan (11/22/2023 11:10 AM LINUX ADMINISTRATOR): Chronic, stable Update 25 OH vit D Assessment & Plan (11/23/2022 11:12 AM LINUX ADMINISTRATOR): Continue monitoring Start vit D if indicated Assessment & Plan (12/01/2021 2:18 PM LINUX ADMINISTRATOR): Check 25 OH vit D Start replacement if indicated Assessment & Plan (12/02/2020 5:02 PM LINUX ADMINISTRATOR): Check 25 OH vit D Adjust dose [...] HYPERPARATHYROID Assessment & Plan (11/22/2023 11:10 AM LINUX ADMINISTRATOR): Chronic, stable Continue monitoring serum and urine CA Bone density requested Assessment & Plan (12/01/2021 2:18 PM LINUX ADMINISTRATOR): Check PTH, serum Ca and 24 h urine calcium Assessment & Plan (02/21/2018 4:08 PM CDT): Check serum Ca, PTH DEXA requested. Hyperparathyroidism 01/25/2011 Assessment & Plan (11/23/2022 11:11 AM LINUX ADMINISTRATOR): Check serum Ca, PTH Continue monitoring unless Ca is rising Repeat dexa next year It has been very stable thru the years. Assessment & Plan (12/02/2020 5:07 PM LINUX ADMINISTRATOR): Continue monitoring serum Ca There is no significant hypercalciuria Bone density shows osteopenia of the left femoral neck in 2020, but between 2011 and 2019 has been with minimal changes Will continue monitoring Assessment & Plan (04/15/2020 12:31 PM CDT): Check serum, urine calcium DEXA If Ca stable, will continue to monitor Social History Tobacco Use Types Packs/Day Years [...] on file Legal Sex Female 10:10 AM LINUX ADMINISTRATOR Gender Identity Not on file Sexual Orientation Not on file Last Filed Vital Signs Vital Sign Reading Time Taken Comments Blood Pressure 130/60 11/22/2023 10:33 AM LINUX ADMINISTRATOR Pulse 89 11/22/2023 10:33 AM LINUX ADMINISTRATOR Temperature - - Respiratory Rate 15 11/22/2023 10:33 AM LINUX ADMINISTRATOR Oxygen Saturation 97% 06/26/2019 10:41 AM CDT Inhaled Oxygen Concentration - - Weight 91.2 kg (201 lb 1.6 oz) 11/22/2023 10:33 AM LINUX ADMINISTRATOR Height 157.5 cm (5' 2.01) 11/22/2023 10:[address] Body Mass Index 36.77 11/22/2023 10:33 AM LINUX ADMINISTRATOR Plan of Treatment Not on file Procedures Procedure Name Priority Date/Time Associated Diagnosis [...] Relevant to Health Maintenance Insurance [employer] MEDICARE [facility] Address: [facility] [id number] [place] [id number] [employer] MEDICARE Care Teams Collections And Archives Director Relationship Specialty Start Date End Date Shalom Chapman MD PCP - General 04/24/13
== END 2025-03-08 07:29 | disposition home or self-care (01) ==
LOC: ANHIMG 07:30
PROVIDERS: PCP Family Medicine; Visit Provider Family Medicine
DX: Z12.31 Encounter for screening mammogram for malignant neoplasm of breast (principal)
CPT/HCPCS: 77063; 77067